=== PATIENT | female | born 1990 | race American Indian/Alaskan Native ===

== ENCOUNTER 2021-01-28 23:11 | Emergency (ER) | payer MEDICAID ==
[2021-01-28] MEDS ORDERED: Sodium Chloride 0.9% 10 ML Syringe FLUSH PRN (23:25)
[2021-01-28] MEDS: Sodium Chloride 0.9% 1,000 ML IV SCH (23:34)
[2021-01-29] MEDS: Sodium Chloride 0.9% 1,000 ML IV SCH ×2 (00:28→01:33)
--- NOTE | 2021-01-29 01:27 | EDM.PDOCBH ---
<Javi Thomas Cynthia - Last Filed: 01/29/21 04:39> ED HPI GENERAL MEDICAL PROBLEM - General Chief Complaint: Drug or Alcohol Abuse Stated Complaint: [facility] Time Seen by Provider: 01/28/21 23:24 Source of Information: Reports: EMS, RN Notes Reviewed - History of Present Illness INITIAL COMMENTS - FREE TEXT/NARRATIVE: 30 yr old female has been brought in by [facility] with report of severe alcohol intoxication, unable to walk, complaining of R knee pain apparently from a fall. Is reported to have consumed a large amt of hard liquor. Pt is nonverbal on arrival to ED. Unable to obtain any further hx. - Related Data Allergies Allergy/AdvReac Type Severity Reaction Status Date / Time Unable to Assess Allergy Unverified 01/28/21 23:16 Past Medical History - Past Health History Medical/Surgical History: Denies Medical/Surgical History Social & Family History - Tobacco Use Tobacco Use Status *Q: Unknown Ever Used Tobacco ED ROS GENERAL - Review of Systems Review Of Systems: Unable To Obtain Reason Not Obtained: AMS ED EXAM, BEHAVIORAL HEALTH - Physical Exam Exam Limited By: Altered Mental Status General Appearance: Other (nonverbal at time of initial exam) Eye Exam: Bilateral Eye: PERRL Ears: Normal External Exam Nose: Normal Inspection Throat/Mouth: Normal Inspection Head: Atraumatic Neck: Other (No JVD) Respiratory/Chest: No Respiratory Distress, Lungs Clear, Normal Breath Sounds, Wheezing (mild bilat). No: Rhonchi Cardiovascular: Regular Rate, Rhythm GI/Abdominal: Non-Tender, Other (moderately obese) Extremities: Other (Slight swelling R mid and R lower leg). No: Pedal Edema, Increased Warmth, Redness Neurological: Other (Unresponsive verbally and to pain at time of intial exam) Skin Exam: Warm, Dry, Normal color COURSE, BEHAVIORAL HEALTH COMP - Course Re-Assessment/Re-Exam: 01:12. Continues to sleep. ETOH .31. Other labs relatively nl. Have given 1 liter NS, 2nd liter is running. sats were 91 RA on arrival . she has 02 on with sats no in the mid to upper 90's. 04:00. Pt did wake up a short time ago. Wondering about her leg. On exam she does have some tenderness of her R knee medially and also ant. R lower leg. Xrays show a miranda with a lot of hardware, no fx. Departure - Departure Disposition: Home, Self-Care 01 Clinical Impression: Alcohol intoxication Qualifiers: Complication of substance-induced condition: uncomplicated Qualified Code(s): F10.920 - Alcohol use, unspecified with intoxication, uncomplicated Altered mental status Qualifiers: Coma depth: Sara coma 13-15 Coma timing: at arrival to emergency department - Discharge Information Instructions: Alcohol Intoxication, [id number] Referrals: PCP,Not In Area [Primary Care Provider] - Forms: ED Department Discharge Additional Instructions: Avoid further alcohol today. Drink plenty of water to maintain hydration. Ice packs and elevation R leg. You may alternate ibuprofen and tylenol as needed for discomfort. Sepsis Event Note (ED) - Evaluation Sepsis Screening Result: No Definite Risk <Eugene Jain - Last Filed: 01/29/21 18:46> ED HPI GENERAL MEDICAL PROBLEM - History of Present Illness Onset: Today, Sudden Duration: Hour(s): Location: Reports: Generalized (Intoxicated by alcohol complaining of lower extremity pain on the right side. She has had previous surgical repair of both distal fibula and tibia in the last 3 months) Quality: Reports: Ache, Throbbing Severity: Moderate Improves with: Reports: Rest Worsens with: Reports: Other (Worse with trying to bear) Associated Symptoms: Reports: Other (Cute alcohol intoxication) Past Medical History Psychiatric History: Reports: Addiction (Chronic alcoholism) Social & Family History - Living Situation & Occupation Occupation: Unemployed ED ROS GENERAL - Review of Systems Review Of Systems: See Below Reason Not Obtained: Patient is acutely intoxicated by alcohol and not able to provide ED EXAM, BEHAVIORAL HEALTH - Physical Exam Exam: See Below General Appearance: Alert, WD/WN COURSE, BEHAVIORAL HEALTH COMP - Course Vital Signs: Last Vital Signs Temp 36.6 C 01/28/21 23:16 Pulse 84 01/28/21 23:16 Resp 15 01/28/21 23:16 BP 141/85 H 01/28/21 23:16 Pulse Ox 91 L 01/28/21 23:16 Orders, Labs, Meds: Active Orders 24 hr Category Date Time Status Durable Medical Equipment for Discharge [DME for Oth 01/29/21 10:20 Ordered Discharge] [COMM] Stat Peripheral IV Insertion Adult [OM.PC] Stat Oth 01/28/21 23:25 Ordered Laboratory Tests 01/28/21 01/28/21 01/29/21 Range/Units 23:22 23:22 04:50 WBC 7.56 (3.98-10.04) K/mm3 RBC 4.91 (3.98-5.22) M/mm3 Hgb 13.1 (11.2-15.7) gm/dl Hct 41.8 (34.1-44.9) % MCV 85.1 (79.4-94.8) fl MCH 26.7 (25.6-32.2) pg MCHC 31.3 L (32.2-35.5) g/dl RDW Std Deviation 48.4 H (36.4-46.3) fL Plt Count 426 H (182-369) K/mm3 MPV 10.0 (9.4-12.3) fl Neut % (Auto) 56.3 (34.0-71.1) % Lymph % (Auto) 37.2 (19.3-51.7) % [place] % (Auto) 5.6 (4.7-12.5) % Eos % (Auto) 0.7 (0.7-5.8) Baso % (Auto) 0.1 (0.1-1.2) % Neut # (Auto) 4.26 (1.56-6.13) K/mm3 Lymph # (Auto) 2.81 (1.18-3.74) K/mm3 [place] # (Auto) 0.42 H (0.24-0.36) K/mm3 Eos # (Auto) 0.05 (0.04-0.36) K/mm3 Baso # (Auto) 0.01 (0.01-0.08) K/mm3 Sodium 147 H (136-145) mEq/L Potassium 3.1 L (3.5-5.1) mEq/L Chloride 108 H (98-107) mEq/L Carbon Dioxide 26 (21-32) mEq/L Anion Gap 16.1 H (5-15) BUN 12 (7-18) mg/dL Creatinine 0.6 (0.55-1.02) mg/dL Est Cr Clr Drug Dosing 128.35 mL/min Estimated GFR (MDRD) > 60 (>60) mL/min BUN/Creatinine Ratio 20.0 H (14-18) Glucose 108 H (70-99) mg/dL Calcium 8.5 (8.5-10.1) mg/dL Total Bilirubin 0.1 L (0.2-1.0) mg/dL AST 18 (15-37) U/L ALT 43 (14-59) U/L Alkaline Phosphatase 87 (46-116) U/L Total Protein 7.5 (6.4-8.2) g/dl Albumin 3.3 L (3.4-5.0) g/dl Globulin 4.2 gm/dL Albumin/Globulin Ratio 0.8 L (1-2) Urine Opiates Screen Negative (ZUEVHU=109) Ur Buprenorphine Scrn Negative (CUTOFF=10) Ur Oxycodone Screen Negative (XZH6WC=412) Urine Methadone Screen Negative (HOUVAM=725) Ur Propoxyphene Screen Negative (ZPEMAZ=668) Ur Barbiturates Screen Negative (IQZIBC=876) Ur Tricyclics Screen Negative (CPWUEF=683) Ur Phencyclidine Scrn Negative (CUTOFF=25) Ur Amphetamine Screen Negative (WYPSOU=382) U Methamphetamines Scrn Negative (PIDGSL=689) U Benzodiazepines Scrn Negative (AKQMZO=207) U Cocaine Metab Screen Negative (YAHYPP=606) U Marijuana (THC) Screen Negative (CUTOFF=50) Ethyl Alcohol 0.31 (0.00) gm% Medications Discontinued Medications Generic Name Dose Route Start Last Admin Trade Name Freq PRN Reason Stop Dose Admin Sodium Chloride 1,000 mls @ 999 mls/hr 01/28/21 23:30 01/29/21 01:33 Normal Saline IV 999 mls/hr ONETIME WILL Administration Sodium Chloride 10 ml 01/28/21 23:25 01/28/21 23:35 Sodium Chloride 0.9% 10 Ml Syringe FLUSH 10 ml ASDIRECTED PRN Administration Keep Vein Open Re-Assessment/Re-Exam Date: 01/29/21 (08:50: Patient is discharged after being admitted to the ED overnight due to alcohol intoxication. She was complaining of right lower extremity pain and did have x-rays of her knee and tib-fib by Dr. Thomas which were normal. She still claims that she is unable to weight-bear with pain in her ankle this morning. She will therefore have 3 [facility] x-rays of her ankle done.) Re-Assessment/Re-Exam Time: 09:23 (Review x-rays of the right ankle have also been obtained and reveal extensive hardware both lateral and medial aspects of the ankle that are in good position. There are no bony injuries.) Medical Clearance: 01/29/21 10:23 patient is requesting crutches to aid her ambulation since weightbearing on the right ankle and leg is very painful since her fall last night while she was intoxicated. Crutches will be ordered. Departure - Departure Time of Disposition: 10:31 - Discharge Information *PRESCRIPTION DRUG MONITORING PROGRAM REVIEWED*: No *COPY OF PRESCRIPTION DRUG MONITORING REPORT IN PATIENT EMILY: No - My Orders Last 24 Hours: My Active Orders 01/29/21 10:20 Durable Medical Equipment for Discharge [DME for Discharge] [COMM] Stat - Assessment/Plan Last 24 Hours: My Active Orders 01/29/21 10:20 Durable Medical Equipment for Discharge [DME for Discharge] [COMM] Stat
--- NOTE | 2021-01-29 07:30 | CR ---
Right knee: 4 views of the right knee were obtained. Comparison: No prior knee study. Intramedullary miranda is partially seen within the tibia. Joint spaces within the knee are maintained. No joint effusion is seen. Several small calcifications are noted within the subcutaneous fat of the anterior knee which is believed to be dystrophic. No acute fracture, dislocation or other bony abnormality is seen. Impression: 1. Intramedullary miranda within the tibia. 2. Several small dystrophic calcifications. 3. No acute osseous abnormality is appreciated within the right knee. Diagnostic code #2
--- NOTE | 2021-01-29 07:35 | CR ---
Right tibia and fibula: AP and lateral views of the right tibia and fibula were obtained. Comparison: No prior tibia or fibula study is available, previous knee study performed on the same day is available. Healed fracture is seen within the tibial diaphysis with intramedullary miranda in place. Plate and screws are also noted within the distal fibula affixing an old healed fracture. Two screws are seen within the medial malleolus which are likely crossing a healed fracture. Small soft tissue calcifications are seen which are felt to be old. Minimal densities are seen next to a screw within the distal tibia which is believed to represent post-surgical change. No acute fracture or other abnormality is appreciated. Impression: 1. Prior surgery within the tibia and fibula. 2. Small dystrophic calcifications whiah are believed to be old. 3. Nothing acute is appreciated on 2 view right tibia and fibula study. Diagnostic code #2
--- NOTE | 2021-01-29 09:28 | CR ---
Right ankle: 4 views of the right ankle were obtained. Comparison: Prior right tibia and fibula study performed earlier on the same day. Intramedullary miranda is seen within the tibia. 2 screws are noted within the medial malleolus. Fibular plate and screws are noted. There are two anchors being seen, one within the fibula and one within the tibia compatible with previous fixation. Ankle mortise is symmetric. Plantar spur is noted. Dystrophic calcifications are seen. Radiopacities, which appear to be postsurgical, are seen next to a screw affixing the intramedullary miranda to the distal tibia. No acute fracture, dislocation or other bony abnormality is appreciated. Impression:fixing 1. Previous surgery. 2. Plantar spur. 3. Nothing acute is appreciated on the right ankle exam. Diagnostic code #2
== END 2021-01-29 10:20 | disposition home or self-care (01) ==
LOC: JD.ED 23:11
DX: R41.82 Altered mental status, unspecified (principal); F10.120 Alcohol abuse with intoxication, uncomplicated; Y90.8 Blood alcohol level of 240 mg/100 ml or more
CPT/HCPCS: 36415; 73564; 73590; 73610; 80053; 80306; 80307; 85025; 99284; J7030; 99283